=== PATIENT | female | born 1985 | race Caucasian/White ===

== ENCOUNTER 2024-10-12 15:01 | Emergency (ER) | payer OTHER ==
[~2024-10-12] VITALS: Ht 154.9 cm; Wt 90.7 kg
[2024-10-12] MEDS ORDERED: Lidocaine Hydrochloride 2% 10 ML AMP SC ONE (15:35)
[2024-10-12] MEDS ORDERED: Tdap Vaccine 0.5 ML SYR (Adult Vaccine) IM ONE (15:35)
== END 2024-10-12 17:36 | disposition home or self-care (01) ==
LOC: ED 15:01
DX: S61.412A Laceration without foreign body of left hand, initial encounter (principal); W26.0XXA Contact with knife, initial encounter; Y93.89 Activity, other specified; Y92.89 Other specified places as the place of occurrence of the external cause; Y99.8 Other external cause status